=== PATIENT | male | born 1970 ===

== ENCOUNTER 2017-01-14 13:14 | Emergency (ER) | payer OTHER ==
[2017-01-14 13:30] VITALS: RESP 18
[2017-01-14] MEDS ORDERED: HYDROmorphone 1 mg/ml ISec IVP STA (14:14)
[2017-01-14] MEDS ORDERED: Sodium Chloride 0.9% 1,000 ML IV STA (14:14)
[2017-01-14 14:42] LABS: BASO # 0.1 K/uL (0.0-0.2); BASO % 0.5 % (0.0-2.0); EOS % 0.3 % (0.0-4.0); HEMATOCRIT 44.5 % (35.0-51.0); LYMPH # 1.1 K/uL (1.0-4.3); LYMPH % 8.4 % (20.0-40.0); MEAN CELL VOLUME 92.4 fL (80.0-94.0); MEAN CORPUSCULAR HEMOGLOBIN 32.6 pg (27.0-31.0); MEAN CORPUSCULAR HGB CONC 35.3 g/dL (33.0-37.0); MONO # 0.5 K/uL (0.0-0.8); MONO % 3.9 % (0.0-10.0); PLATELET COUNT 341 K/uL (130-400); RED CELL DISTRIBUTION WIDTH 13.3 % (11.5-14.5); WHITE BLOOD COUNT 13.6 K/uL (4.8-10.8)
[2017-01-14 14:52] LABS: ALB/GLOB RATIO 1.4 (1.0-2.1); ALKALINE PHOSPHATASE 75 U/L (38-126); ALT/SGPT 45 U/L (21-72); AST/SGOT 29 U/L (17-59); BILIRUBIN,TOTAL 0.8 mg/dL (0.2-1.3); BLOOD UREA NITROGEN 13 mg/dL (9-20); CALCIUM 9.2 mg/dl (8.6-10.4); CARBON DIOXIDE 22 mmol/L (22-30); CHLORIDE 99 mmol/L (98-107); GFR AFRICAN-AMERICAN > 60; GLUCOSE,RANDOM 82 mg/dL (75-110); POTASSIUM 3.3 mmol/L (3.6-5.2); SODIUM 138 mmol/L (132-148); TOTAL PROTEIN 8.1 g/dL (6.3-8.3)
[2017-01-14] MEDS ORDERED: Sodium Chloride 0.9% 1,000 ML ONE (15:10)
[2017-01-14 15:16] LABS: RBC URINE 295 /hpf (0-3); URINE BACTERIA RARE (<OCC); URINE BILIRUBIN NEGATIVE (NEGATIVE); URINE BLOOD 3+ (NEGATIVE); URINE COLOR Yellow (YELLOW); URINE GLUCOSE (UA) NORMAL (Normal); URINE KETONE 1+ mg/dL (NEGATIVE); URINE LEUKOCYTE ESTERASE NEG Leu/uL (Negative); URINE PROTEIN NEGATIVE (NEGATIVE); URINE UROBILINOGEN NORMAL mg/dL (0.2-1.0); WBC URINE 7 /hpf (0-5)
--- NOTE | 2017-01-14 15:18 | CT ---
PROCEDURE: CT Abdomen and Pelvis without intravenous contrast HISTORY: left flank pain/hematuria COMPARISON: None. TECHNIQUE: Axial and reformatted coronal and sagittal CT images of the abdomen and pelvis were obtained without IV or oral contrast administration.. Contrast Dose: 0 Radiation dose: Total exam DLP = 267.27 mGy-cm. This CT exam was performed using one or more of the following dose reduction techniques: Automated exposure control, adjustment of the mA and/or kV according to patient size, and/or use of iterative reconstruction technique. FINDINGS: LOWER THORAX: Unremarkable. LIVER: There is 7 millimeter low-attenuation cyst at the anterior aspect of the low right liver dome image 14. Liver is mildly enlarged. GALLBLADDER AND BILE DUCTS: Unremarkable. PANCREAS: Unremarkable. No gross lesion or ductal dilatation. SPLEEN: Unremarkable. ADRENALS: Unremarkable. No mass. KIDNEYS AND URETERS: There is mild left hydronephrosis and hydroureter up to 4 millimeter calculus at the distal left ureter. The right kidney is grossly unremarkable. VASCULATURE: Unremarkable. No aortic aneurysm. BOWEL: Unremarkable. No obstruction. No gross mural thickening. APPENDIX: Unremarkable. Normal appendix. PERITONEUM: Unremarkable. No free fluid. No free air. LYMPH NODES: Unremarkable. No enlarged lymph nodes. BLADDER: Unremarkable. REPRODUCTIVE: The prostatic is mildly enlarged. BONES: No acute fracture. There is severe degenerative changes and narrowing of the disc space at L5-S1. There is approximately 5-6 millimeter anterior spondylolisthesis of L5 relative to S1. OTHER FINDINGS: None. IMPRESSION: Mild left hydronephrosis and hydroureter up to 4 millimeter calculus at the distal left ureter. Severe degenerative changes and narrowing of the disc space at L5-S1. Approximately 5-6 millimeter anterior spondylolisthesis of L5 relative to S1.
[2017-01-14 15:19] LABS: NEUTROPHIL 88 % (50-75); TOTAL CELLS COUNTED 100
[2017-01-14 15:25] VITALS: BP 168/83; PULSE 68; TEMP 98.2; O2SAT 95
--- NOTE | 2017-01-14 15:29 | C.PDOC ---
History Of Present Illness 47-year-old male, presents to the emergency department with complaints of pain to left flank, that is associated with hematuria, x1.5 hrs, prior to arrival. Patient states he feels nauseated. Denies any Hx of similar pain or symptoms. Denies nausea/vomiting, fevers, chills, shortness of breath, chest pain, or any other associated symptoms. No other complaints at this time. Time Seen by Provider: 01/14/17 13:54 Chief Complaint (Nursing): Male Genitourinary History Per: Patient History/Exam Limitations: no limitations Onset/Duration Of Symptoms: Days Current Symptoms Are (Timing): Still Present Severity: Moderate Past Medical History Reviewed: Historical Data, Nursing Documentation, Vital Signs Vital Signs: Last Vital Signs Temp 98.2 F 01/14/17 15:23 Pulse 68 01/14/17 15:23 Resp 18 01/14/17 15:23 BP 168/83 H 01/14/17 15:23 Pulse Ox 95 01/14/17 16:15 Family History: States: No Known Family Hx - Social History Hx Alcohol Use: No Hx Substance Use: No - Immunization History Hx Tetanus Toxoid Vaccination: No Hx Influenza Vaccination: No Hx Pneumococcal Vaccination: No Review Of Systems Except As Marked, All Systems Reviewed And Found Negative. Constitutional: Negative for: Fever, Chills Cardiovascular: Negative for: Chest Pain Respiratory: Negative for: Shortness of Breath Gastrointestinal: Negative for: Nausea, Vomiting Genitourinary: Positive for: Hematuria Musculoskeletal: Positive for: Back Pain Neurological: Negative for: Weakness, Numbness, Headache, Dizziness Physical Exam - Physical Exam Appears: Non-toxic, No Acute Distress Skin: Warm, Dry, No Rash Head: Atraumatic, Normacephalic Eye(s): bilateral: Normal Inspection Nose: Normal Neck: Normal ROM Cardiovascular: Rhythm Regular, No Murmur Respiratory: Normal Breath Sounds Gastrointestinal/Abdominal: Soft, No Tenderness Back: No CVA Tenderness Extremity: Normal ROM Neurological/Psych: Oriented x3, Normal Speech ED Course And Treatment - Laboratory Results Result Diagrams: 01/14/17 14:37 01/14/17 14:37 O2 Sat by Pulse Oximetry: 95 - CT Scan/US CT abd/pelvis Other Rad Studies (CT/US): Read By Radiologist, Radiology Report Reviewed CT/US Interpretation: . PROCEDURE: CT Abdomen and Pelvis without intravenous contrast. HISTORY: left flank pain/hematuria. COMPARISON: None. TECHNIQUE: Axial and reformatted coronal and sagittal CT images of the abdomen and pelvis were obtained without IV or oral contrast administration.. Contrast Dose: 0. Radiation dose: Total exam DLP = 267.27 mGy-cm. This CT exam was performed using one or more of the following dose reduction techniques : Automated exposure control, adjustment of the mA and/or kV according to patient size, and/or use of iterative reconstruction technique. FINDINGS: LOWER THORAX: Unremarkable. LIVER: There is 7 millimeter low-attenuation cyst at the anterior aspect of the low right liver dome image 14. Liver is mildly enlarged. GALLBLADDER AND BILE DUCTS: Unremarkable. PANCREAS: Unremarkable. No gross lesion or ductal dilatation. SPLEEN: Unremarkable. ADRENALS: Unremarkable. No mass. KIDNEYS AND URETERS: There is mild left hydronephrosis and hydroureter up to 4 millimeter calculus at the distal left ureter. The right kidney is grossly unremarkable. VASCULATURE: Unremarkable. No aortic aneurysm. BOWEL: Unremarkable. No obstruction. No gross mural thickening. APPENDIX: Unremarkable. Normal appendix. PERITONEUM: Unremarkable. No free fluid. No free air. LYMPH NODES: Unremarkable. No enlarged lymph nodes. BLADDER: Unremarkable. REPRODUCTIVE: The prostatic is mildly enlarged. BONES: No acute fracture. There is severe degenerative changes and narrowing of the disc space at L5-S1. There is approximately 5-6 millimeter anterior spondylolisthesis of L5 relative to S1. OTHER FINDINGS: None. IMPRESSION: Mild left hydronephrosis and hydroureter up to 4 millimeter calculus at the distal left ureter. Severe degenerative changes and narrowing of the disc space at L5-S1. Approximately 5-6 millimeter anterior spondylolisthesis of L5 relative to S1. Progress Note: On re-evaluation patient feels better, no longer has flank pain. Patient is stable to be d/c home with Urologist f/u. Urine strainer was given. Disposition - Disposition Referrals: Horacio Allan MD [Staff Provider] - Disposition: HOME/ ROUTINE Disposition Time: 16:14 Condition: STABLE Additional Instructions: Follow up with Urologist within 1-2 days. Return to [facility] if feel worse. Prescriptions: oxyCODONE/Acetaminophen [Percocet 5/325 mg Tab] 1 tab PO QID PRN #20 tab PRN Reason: Pain Ondansetron [Zofran Odt] 1 - 2 tab PO .Q4-6H PRN #20 odt PRN Reason: Nausea/Vomiting Instructions: Renal Colic (ED) Forms: [employer] ([employer]) (Y[place]i), Work Excuse Print Language: CYMRAES - Clinical Impression Clinical Impression: Renal colic on left side - Scribe Statement The provider has reviewed the documentation as recorded by the Scribe (Alphonso Patino) All medical record entries made by the Scribe were at my direction and personally dictated by me. I have reviewed the chart and agree that the record accurately reflects my personal performance of the history, physical exam, medical decision making, and the department course for this patient. I have also personally directed, reviewed, and agree with the discharge instructions and disposition.
== END 2017-01-14 16:34 | disposition home or self-care (01) ==
LOC: C.ER 13:14
DX: N13.2 Hydronephrosis with renal and ureteral calculous obstruction (principal)
CPT/HCPCS: 74176; 80053; 81001; 83690; 85025; 96360; 99284; J7040